=== PATIENT | female | born 1995 | race African-American/Black ===

== ENCOUNTER 2021-02-10 20:18 | Emergency (ER) | payer OTHER ==
[~2021-02-10] VITALS: Ht 177.8 cm; Wt 58.7 kg
[2021-02-10 23:13] VITALS: BP 110/64
== END 2021-02-10 23:14 | disposition home or self-care (01) ==
LOC: M ED 20:18
DX: J02.9 Acute pharyngitis, unspecified (principal); R05 Cough; R19.7 Diarrhea, unspecified

== ENCOUNTER 2021-11-24 16:45 | Emergency (ER) | payer OTHER ==
[~2021-11-24] VITALS: Ht 157.5 cm; Wt 97.4 kg
[2021-11-24 19:34] VITALS: BP 116/54
== END 2021-11-24 19:35 | disposition home or self-care (01) ==
LOC: M ED 16:45
DX: O99.512 Diseases of the respiratory system complicating pregnancy, second trimester (principal); J02.9 Acute pharyngitis, unspecified; O99.612 Diseases of the digestive system complicating pregnancy, second trimester; R19.7 Diarrhea, unspecified; Z20.822 Contact with and (suspected) exposure to COVID-19; Z3A.24 24 weeks gestation of pregnancy

== ENCOUNTER 2021-12-15 08:10 | Emergency (ER) | payer OTHER ==
[~2021-12-15] VITALS: Ht 157.5 cm; Wt 73.7 kg
[2021-12-15 14:35] VITALS: BP 131/62
[2021-12-15] MEDS ORDERED: ACETAMINOPHEN TAB 650MG DOSE (2X325MG) PO ONE (14:55)
== END 2021-12-15 15:48 | disposition home or self-care (01) ==
LOC: M ED 08:10
DX: O98.512 Other viral diseases complicating pregnancy, second trimester (principal); U07.1 COVID-19; Z3A.27 27 weeks gestation of pregnancy